=== PATIENT | male | born 1945 | race Caucasian/White ===

== ENCOUNTER → 2018-10-20 | Outpatient (CLI) | payer MEDICARE, OTHER ==
[~2018-10-20] MED LIST: AZIT500T47 PO; DOCU-416 PO; LOR5/325 PO; OXYC-865 PO; PNEU0.5D3 IM; [UNRECOGNIZED DRUG - REMARK]
--- NOTE | 2018-10-20 19:06 | RADIOLOGY IMAGING REPORT ---
FACILITY: [facility] PATIENT NAME: Noam Blackburn : 1945 MR: [id number] V: [id number] EXAM DATE: [id number] ORDERING PHYSICIAN: ODELL DOOLEY TECHNOLOGIST: Location: [facility] [place] Patient: Noam Blackburn : 1945 Visit/Account:[id number] Date of Sevice: 10/20/2018 Abdominal ultrasound Indication: No current issues, upcoming travel Comparison: None Findings: The liver measures 9.9 cm. Hepatic echotexture is within normal limits. Contour is smooth. Portal vei n is patent with normal directional flow. No ascites. Simple appearing 1.1 cm cyst left hepatic lobe. Simple appearing 1.2 cm cysts segment 4A. Gallbladder was contracted. Given the contractions, and no evidence of wall thickening, pericholecyst ic fluid, stones or sludge. Negative sonographic Yang's sign. Common duct measures 3.7 mm in maximum diameter with no evidence of shadowing stone. The head and proximal body of the pancreas is unremarkable. The distal body and tail is obscured by o verlying bowel gas. Abdominal aorta and IVC are patent and unremarkable. Right kidney measures 11.7 x 5.2 x 6.0 cm. Simple appearing superior pole cyst is noted. IMPRESSION: 1. Unremarkable examination. 2. Incidental note of simple appearing hepatic and right renal cysts Report Dictated By: Car Prado MD at 10/20/2018 6:52 PM Report E-Signed By: Car Prado MD at 10/20/2018 7:02 PM WSN:[id number]
== END ==
LOC: US 00:34
PROVIDERS: ATTEND Family Medicine
DX: Z02.89 Encounter for other administrative examinations (principal); N28.1 Cyst of kidney, acquired
CPT/HCPCS: 76705